=== PATIENT | male | born 1970 ===

== ENCOUNTER 2018-12-25 20:35 | Emergency (ER) | payer BC ==
[~2018-12-25] VITALS: Ht 172.7 cm; Wt 71.7 kg
[2018-12-25] MEDS ORDERED: MEDROLPACK PO (23:32)
[2018-12-25] MEDS ORDERED: FLONASE ALLERG9.9 ML NASAL (23:32)
[2018-12-25] MEDS ORDERED: ZITHROMAX500 MG PO (23:32)
== END 2018-12-25 23:50 | disposition home or self-care (01) ==
LOC: ER 20:35
DX: S09.21XA Traumatic rupture of right ear drum, initial encounter (principal); H66.91 Otitis media, unspecified, right ear; W50.0XXA Accidental hit or strike by another person, initial encounter; Y93.89 Activity, other specified; Y92.59 Other trade areas as the place of occurrence of the external cause; Y99.8 Other external cause status